=== PATIENT | male | born 1980 | race American Indian/Alaskan Native ===

== ENCOUNTER 2017-04-27 01:52 | Inpatient (IN) | payer OTHER ==
[2017-04-27 02:52] LABS: Basophils % (Auto) 0.6 % (0.0-1.8); Eosinophils % (Auto) 3.7 % (0.0-4.3); Hematocrit 41.9 % (35.5-45.6); Mean Corpuscular HGB Conc 33 % (32-34); Mean Corpuscular Hemoglobin 30 pg (28-32); Mean Corpuscular Volume 90 fl (84-94); Platelet Count 189 K/mm3 (140-440); Red Blood Count 4.66 M/mm3 (3.65-5.03); Red Cell Distribution Width 14.1 % (13.2-15.2); White Blood Count 7.5 K/mm3 (4.5-11.0)
[2017-04-27 03:11] LABS: Anion Gap 19 mmol/L; BUN/Creatinine Ratio 24.28; Blood Urea Nitrogen 17 mg/dL (9-20); Calcium 8.8 mg/dL (8.4-10.2); Carbon Dioxide 25 mmol/L (22-30); Chloride 98.3 mmol/L (98-107); Glucose 108 mg/dL (75-100); Potassium 3.7 mmol/L (3.6-5.0); Sodium 139 mmol/L (137-145)
[2017-04-27] MEDS ORDERED: LIDOCAINE VISCOUS 2% PO ONE (08:03)
[2017-04-27] MEDS ORDERED: ALUM-MAG HYDROX-SIMETH 200-200-20MG/5ML PO ONE (08:03)
[2017-04-27] MEDS ORDERED: PEPCID IV ONE (08:03)
[2017-04-27] MEDS ORDERED: ASPIRIN PO ONE (08:04)
--- NOTE | 2017-04-27 08:07 | Emergency Department Report ---
ED Chest Pain HPI - General Chief Complaint: Chest Pain Stated Complaint: CHEST PAIN, NAUSEA Time Seen by Provider: 04/27/17 07:33 Source: patient Mode of arrival: Ambulatory Limitations: No Limitations - History of Present Illness Initial Comments: 37-year-old male with no known past medical history presents to the hospital complains of intermittent chest pain 6 days. Pain is in the epigastric area and left side of chest. Described as a intermittent pressure and fullness. Worse when lying supine without any specific alleviating factors reported. Denies burning sensation. Positive nausea without vomiting, shortness of breath , diaphoresis, calf tenderness, or edema. Patient denies significant family history or tobacco use patient presents with elevated BP and has not had his blood pressure checked in quite some time since she does not have a primary care doctor. Severity scale (0 -10): 0 - Related Data Home Medications Medication Instructions Recorded Confirmed Last Taken No Known Home Medications [No 04/27/17 04/27/17 Unknown Reported Home Medications] Allergies Allergy/AdvReac Type Severity Reaction Status Date / Time No Known Allergies Allergy Verified 04/27/17 06:38 Heart Score - HEART Score History: Slightly suspicious EKG: Normal Age: < 45 Risk factors: 1-2 risk factors Troponin: < normal limit HEART Score: 1 ED Review of Systems ROS: Stated complaint: CHEST PAIN, NAUSEA Other details as noted in HPI Comment: All other systems reviewed and negative Other: Constitutional: No fevers chills Eyes: No eye pain visual changes ENT: No ear pain or throat pain Neck: Denies pain Respiratory: Denies cough wheezing shortness of breath Cardiovascular: Denies palpitations, syncope GI: Denies abdominal pain : Denies dysuria Musculoskeletal: Denies back pain Skin: Denies rash, lesions, erythema Neurologic: Denies headache, numbness, weakness Psychiatric: Denies suicidal ideation, hallucinations ED Past Medical Hx - Past Medical History Previous Medical History?: No - Surgical History Past Surgical History?: Yes Additional Surgical History: surgery on rt elbow 18 yrs - Social History Smoking Status: Never Smoker Substance Use Type: None - Medications Home Medications: Home Medications Medication Instructions Recorded Confirmed Last Taken Type No Known Home Medications [No 04/27/17 04/27/17 Unknown History Reported Home Medications] ED Physical Exam - General Limitations: No Limitations - Other Other exam information: General: No limitations, patient is alert in no acute distress Head exam: Atraumatic, normocephalic Eyes exam: Normal appearance, pupils equal reactive to light, extraocular movements intact ENT: Moist mucous membrane, normal oropharynx Neck exam: Normal inspection, full range of motion, no meningismus nontender Respiratory exam: Clear to auscultation bilateral, no wheezes, rales, crackles Cardiovascular: Normal rate and rhythm, normal heart sounds, no chest wall tenderness Abdomen: Soft, nondistended, mild epigastric tenderness, with normal bowel sounds, no rebound, or guarding Extremity: Full range of motion normal inspection no deformity, no calf tenderness or edema Back: Normal Inspection, full range of motion, no tenderness Neurologic: Alert, oriented x3, cranial nerves intact, no motor or sensory deficit Psychiatric: normal affect, normal mood Skin: Warm, dry, intact ED Course Vital Signs 04/27/17 04/27/17 04/27/17 02:23 06:33 07:28 Temperature 98 F 97.7 F Pulse Rate 98 H 70 80 Respiratory 18 15 12 Rate Blood Pressure 167/105 Blood Pressure 151/96 146/85 [Left] O2 Sat by Pulse 99 99 98 Oximetry - Reevaluation(s) Reevaluation #1: 04/27/17 08:07 Maalox, viscous lidocaine, IV Pepcid, and by mouth aspirin ordered BERT score - Bert Score Age > 65: (0) No Aspirin use within the Past 7 Days: (0) No 3 or more CAD Risk Factors: (0) No 2 or more Angina events in past 24 hrs: (0) No Known CAD with more than 50% Stenosis: (0) No Elevated Cardiac Markers: (0) No ST Deviation Greater than 0.5mm: (0) No BERT Score: 0 ED Medical Decision Making - Lab Data Result diagrams: 04/27/17 02:39 04/27/17 02:39 Lab Results 04/27/17 04/27/17 04/27/17 Range/Units 02:39 02:39 05:27 WBC 7.5 (4.5-11.0) K/mm3 RBC 4.66 (3.65-5.03) M/mm3 Hgb 14.0 (11.8-15.2) gm/dl Hct 41.9 (35.5-45.6) % MCV 90 (84-94) fl MCH 30 (28-32) pg MCHC 33 (32-34) % RDW 14.1 (13.2-15.2) % Plt Count 189 (140-440) K/mm3 Lymph % (Auto) 24.2 (13.4-35.0) % Pierce % (Auto) 12.4 H (0.0-7.3) % Eos % (Auto) 3.7 (0.0-4.3) % Baso % (Auto) 0.6 (0.0-1.8) % Lymph # 1.8 (1.2-5.4) K/mm3 Pierce # 0.9 H (0.0-0.8) K/mm3 Eos # 0.3 (0.0-0.4) K/mm3 Baso # 0.0 (0.0-0.1) K/mm3 Seg Neutrophils % 59.1 (40.0-70.0) % Seg Neutrophils # 4.4 (1.8-7.7) K/mm3 Sodium 139 (137-145) mmol/L Potassium 3.7 (3.6-5.0) mmol/L Chloride 98.3 (98-107) mmol/L Carbon Dioxide 25 (22-30) mmol/L Anion Gap 19 mmol/L BUN 17 (9-20) mg/dL Creatinine 0.7 L (0.8-1.5) mg/dL Estimated GFR > 60 ml/min BUN/Creatinine Ratio 24.28 % Glucose 108 H (75-100) mg/dL Calcium 8.8 (8.4-10.2) mg/dL Troponin T < 0.010 < 0.010 (0.00-0.029) ng/mL - EKG Data -: EKG Interpreted by Me (nsr rate 82, LPFB no stemi) - Radiology Data Radiology results: report reviewed (cxr: no acute disease, old healed granulomatous disease possible) - Medical Decision Making Overall I think that patient's symptoms are likely GI related. My concern is probable risk stratification given unknown medical history the lack of PMD follow-up. Patient will be admitted for stress test to rule out cardiac disease - Differential Diagnosis LA, PE, GERD, esophageal spasm, atypical chest pain Critical Care Time: No Critical care attestation.: If time is entered above; I have spent that time in minutes in the direct care of this critically ill patient, excluding procedure time. ED Disposition Clinical Impression: Chest pain, Elevated blood pressure reading Disposition: OP ADMIT IP TO THIS HOSP Is pt being admited?: Yes Condition: Stable Time of Disposition: 08:05 ([facility]/h[facility])
[2017-04-27] MEDS ORDERED: ZOFRAN IV PRN (08:47)
--- NOTE | 2017-04-27 08:48 | History and Physical Report ---
<HEYDI DORADO - Last Filed: 04/27/17 12:26> History of Present Illness Date of examination: 04/27/17 Date of admission: 04/27/2017 Chief complaint: Chest pain History of present illness: Patient is 37-year-old male with no known past medical history presents to the hospital complains of intermittent chest pain for the past six days. who presented to the ED complaining of left chest pain. he states that the pain began six days ago consisted of a dull pain. The pain was located over her left chest area somewhat in the epigastric area . Patient described as dull, constant, pressure pain. The onset of pain came while the patient was at home laying down on the sofa. He states that pain was non-radiating and lasted for several hours. Worse when lying supine there is no alleviating factors . He continued to have several episodes of the pain throughout the night, so his decided to bring him to the emergency department. The painful episodes did not increase in intensity or severity during this time. Patient was given nitroglycerin, ASA in the emergency department without improvement of the pain. The patient currently rated his pain a score of 5/10. He denies shortness of breath, diaphoresis, vomiting during these episodes of pain. Patient reported nausea. Patient had a negative. Patient never had chest pain or cardiac issue before. Past History Past Medical History: No medical history Past Surgical History: No surgical history Social history: denies: smoking, alcohol abuse, prescription drug abuse Family history: no significant family history Medications and Allergies Allergies Allergy/AdvReac Type Severity Reaction Status Date / Time No Known Allergies Allergy Verified 04/27/17 06:38 Home Medications Medication Instructions Recorded Confirmed Last Taken Type No Known Home Medications [No 04/27/17 04/27/17 Unknown History Reported Home Medications] Active Meds: Active Medications Acetaminophen (Tylenol) 650 mg PO Q4H PRN PRN Reason: Pain MILD(1-3)/Fever >100.5/TIWARI Aspirin (Aspirin) 325 mg PO QDAY SMITA Bisacodyl (Dulcolax) 10 mg CA QDAY PRN PRN Reason: Constipation unrelieved by MOM Famotidine (Pepcid) 40 mg PO QDAY [facility] Morphine Sulfate (Morphine) 2 mg IV Q4H PRN PRN Reason: Pain, Moderate (4-6) Ondansetron HCl (Zofran) 4 mg IM Q4H PRN PRN Reason: Nausea And Vomiting Review of Systems Constitutional: no weight loss, no weight gain, no fever, no chills, no sweats Ears, nose, mouth and throat: no ear pain, no ear discharge, no tinnitis, no decreased hearing, no nose pain, no nasal congestion Cardiovascular: chest pain, no palpitations, no rapid/irregular heart beat, no edema, no syncope, no lightheadedness Respiratory: no cough, no cough with sputum, no excessive sputum, no hemoptysis , no shortness of breath Gastrointestinal: nausea, no vomiting, no diarrhea, no constipation, no coffee ground emesis Genitourinary Male: no dysuria, no flank pain, no discharge, no urinary frequency, no urinary hesitancy Rectal: no pain, no incontinence Musculoskeletal: no neck stiffness, no neck pain, no shooting arm pain Integumentary: no rash, no pruritis, no redness Neurological: no transient paralysis, no paralysis, no weakness, no parathesias Psychiatric: no memory loss, no change in sleep habits, no sleep disturbances, no hypersomnia Endocrine: no cold intolerance, no heat intolerance, no polyphagia, no weight change Hematologic/Lymphatic: no easy bleeding Allergic/Immunologic: no allergic rhinitis Exam - Constitutional Vitals: Temp Pulse Resp BP Pulse Ox 97.7 F 80 12 146/85 98 04/27/17 07:28 04/27/17 07:28 04/27/17 07:28 04/27/17 07:28 04/27/17 07:28 General appearance: Present: no acute distress - EENT Eyes: Present: PERRL, EOM intact ENT: hearing intact, clear oral mucosa - Neck Neck: Present: supple - Respiratory Respiratory effort: normal Respiratory: bilateral: CTA - Cardiovascular Heart rate: 104 Rhythm: regular Heart Sounds: Present: S1 & S2 - Extremities Extremities: no ischemia Peripheral Pulses: within normal limits - Abdominal General gastrointestinal: Present: soft, non-tender Male genitourinary: Present: deferred - Rectal Rectal Exam: deferred - Integumentary Integumentary: Present: clear, warm, dry - Musculoskeletal Musculoskeletal: strength equal bilaterally - Psychiatric Psychiatric: appropriate mood/affect - Neurologic Neurologic: CNII-XII intact - Allied Health Allied health notes reviewed: nursing Results - Labs CBC & Chem 7: 04/27/17 02:39 04/27/17 02:39 Labs: Laboratory Last Values WBC 7.5 K/mm3 (4.5-11.0) 04/27/17 02:39 RBC 4.66 M/mm3 (3.65-5.03) 04/27/17 02:39 Hgb 14.0 gm/dl (11.8-15.2) 04/27/17 02:39 Hct 41.9 % (35.5-45.6) 04/27/17 02:39 MCV 90 fl (84-94) 04/27/17 02:39 MCH 30 pg (28-32) 04/27/17 02:39 MCHC 33 % (32-34) 04/27/17 02:39 RDW 14.1 % (13.2-15.2) 04/27/17 02:39 Plt Count 189 K/mm3 (140-440) 04/27/17 02:39 Lymph % (Auto) 24.2 % (13.4-35.0) 04/27/17 02:39 Ocean % (Auto) 12.4 % (0.0-7.3) H 04/27/17 02:39 Eos % (Auto) 3.7 % (0.0-4.3) 04/27/17 02:39 Baso % (Auto) 0.6 % (0.0-1.8) 04/27/17 02:39 Lymph # 1.8 K/mm3 (1.2-5.4) 04/27/17 02:39 Ocean # 0.9 K/mm3 (0.0-0.8) H 04/27/17 02:39 Eos # 0.3 K/mm3 (0.0-0.4) 04/27/17 02:39 Baso # 0.0 K/mm3 (0.0-0.1) 04/27/17 02:39 Seg Neutrophils % 59.1 % (40.0-70.0) 04/27/17 02:39 Seg Neutrophils # 4.4 K/mm3 (1.8-7.7) 04/27/17 02:39 Sodium 139 mmol/L (137-145) 04/27/17 02:39 Potassium 3.7 mmol/L (3.6-5.0) 04/27/17 02:39 Chloride 98.3 mmol/L (98-107) 04/27/17 02:39 Carbon Dioxide 25 mmol/L (22-30) 04/27/17 02:39 Anion Gap 19 mmol/L 04/27/17 02:39 BUN 17 mg/dL (9-20) 04/27/17 02:39 Creatinine 0.7 mg/dL (0.8-1.5) L 04/27/17 02:39 Estimated GFR > 60 ml/min 04/27/17 02:39 BUN/Creatinine Ratio 24.28 % 04/27/17 02:39 Glucose 108 mg/dL (75-100) H 04/27/17 02:39 Calcium 8.8 mg/dL (8.4-10.2) 04/27/17 02:39 Troponin T < 0.010 ng/mL (0.00-0.029) 04/27/17 05:27 Assessment and Plan Assessment and plan: Patient is 37-year-old male with no known past medical history presents to the hospital complains of intermittent chest pain for the past six days. who presented to the ED complaining of left chest pain. he states that the pain began six days ago consisted of a dull pain Chest x-ray-no focal infiltrates, no pneumothorax. Cardiac enzyme negative. EKG Sinus Tachycardia rate [address] elevation or T-wave inversion ASSESSMENT/PLAN Chest Pain We will admit to telemetry floor. EKG normal sinus rate [address] elevation or T-wave inversion. We will get another EKG ordered for a changes that have taken since the first one obtained We will repeat serial cardiac enzymes and follow cardiac enzymes troponin. Start on aspirin Nitroglycerin when necessary Morphine ordered for pain Stress test ordered. Hypertension Started on HCTZ 25mg daily IV hydralazine for SBP >160 Closely monitor blood pressure DVT prophylaxis Full code Advance Directives: Yes VTE prophylaxis?: Chemical Contraindication Mechanical VTE Prophylaxis: Treatment Not Indicated Plan of care discussed with patient/family: Yes <JOSE E KIM - Last Filed: 04/27/17 17:46> History of Present Illness Date of admission: 04/27/17 09:01 Medications and Allergies Active Meds: Active Medications Acetaminophen (Tylenol) 650 mg PO Q4H PRN PRN Reason: Pain MILD(1-3)/Fever >100.5/TIWARI Aspirin (Aspirin) 325 mg PO QDAY [facility] Bisacodyl (Dulcolax) 10 mg CA QDAY PRN PRN Reason: Constipation Famotidine (Pepcid) 40 mg PO QDAY [facility] Hydrochlorothiazide (Hctz) 25 mg PO QDAY [facility] Morphine Sulfate (Morphine) 2 mg IV Q4H PRN PRN Reason: Pain, Moderate (4-6) Ondansetron HCl (Zofran) 4 mg IV Q4H PRN PRN Reason: Nausea And Vomiting Exam - Constitutional Vitals: Temp Pulse Resp BP Pulse Ox 98.0 F 83 18 134/74 99 04/27/17 13:33 04/27/17 13:33 04/27/17 13:33 04/27/17 13:33 04/27/17 13:33 Results - Labs CBC & Chem 7: 04/27/17 02:39 04/27/17 02:39 Labs: Laboratory Last Values WBC 7.5 K/mm3 (4.5-11.0) 04/27/17 02:39 RBC 4.66 M/mm3 (3.65-5.03) 04/27/17 02:39 Hgb 14.0 gm/dl (11.8-15.2) 04/27/17 02:39 Hct 41.9 % (35.5-45.6) 04/27/17 02:39 MCV 90 fl (84-94) 04/27/17 02:39 MCH 30 pg (28-32) 04/27/17 02:39 MCHC 33 % (32-34) 04/27/17 02:39 RDW 14.1 % (13.2-15.2) 04/27/17 02:39 Plt Count 189 K/mm3 (140-440) 04/27/17 02:39 Lymph % (Auto) 24.2 % (13.4-35.0) 04/27/17 02:39 Ocean % (Auto) 12.4 % (0.0-7.3) H 04/27/17 02:39 Eos % (Auto) 3.7 % (0.0-4.3) 04/27/17 02:39 Baso % (Auto) 0.6 % (0.0-1.8) 04/27/17 02:39 Lymph # 1.8 K/mm3 (1.2-5.4) 04/27/17 02:39 Ocean # 0.9 K/mm3 (0.0-0.8) H 04/27/17 02:39 Eos # 0.3 K/mm3 (0.0-0.4) 04/27/17 02:39 Baso # 0.0 K/mm3 (0.0-0.1) 04/27/17 02:39 Seg Neutrophils % 59.1 % (40.0-70.0) 04/27/17 02:39 Seg Neutrophils # 4.4 K/mm3 (1.8-7.7) 04/27/17 02:39 Sodium 139 mmol/L (137-145) 04/27/17 02:39 Potassium 3.7 mmol/L (3.6-5.0) 04/27/17 02:39 Chloride 98.3 mmol/L (98-107) 04/27/17 02:39 Carbon Dioxide 25 mmol/L (22-30) 04/27/17 02:39 Anion Gap 19 mmol/L 04/27/17 02:39 BUN 17 mg/dL (9-20) 04/27/17 02:39 Creatinine 0.7 mg/dL (0.8-1.5) L 04/27/17 02:39 Estimated GFR > 60 ml/min 04/27/17 02:39 BUN/Creatinine Ratio 24.28 % 04/27/17 02:39 Glucose 108 mg/dL (75-100) H 04/27/17 02:39 Calcium 8.8 mg/dL (8.4-10.2) 04/27/17 02:39 Troponin T < 0.010 ng/mL (0.00-0.029) 04/27/17 08:33 Assessment and Plan Assessment and plan: I saw and evaluated the patient. I agree with the findings and the plan of care as documented in the Nurse Practitioner's~note, with the following corrections and additions. Patient seen and examined in no acute distress at this time. Will check lipid profile, UDS, and lipase.
--- NOTE | 2017-04-27 08:55 | XRay Report ---
CHEST 2 VIEWS INDICATION: Chest pain. COMPARISON: None similar at this institution. FINDINGS: PA and lateral chest radiographs demonstrate normal cardiomediastinal silhouette. Clear lungs. Intact bones. EKG leads. CONCLUSION: No acute disease in the chest. Old healed granulomatous disease possible. Thank you for the opportunity to participate in this patient's care.
[2017-04-27] MEDS ORDERED: MORPHINE IV PRN (10:00)
[2017-04-27] MEDS ORDERED: TYLENOL PO PRN (10:30)
[2017-04-27] MEDS ORDERED: LEXISCAN IV ONE ×2 (10:47→10:49)
[2017-04-27] MEDS ORDERED: DULCOLAX PR PRN (11:00)
[2017-04-27] MEDS: PEPCID PO SCH (12:24)
--- NOTE | 2017-04-27 14:22 | Admit Criteria Form ---
Admission Criteria Documentation: CARDIOLOGY GRG Clinical Indications for Admission to Inpatient Care ( Place 'X' for any and all applicable criteria): Hospital admission is needed for appropriate care of the patient because of ANY ONE of the following (1): [ ] I. Hemodynamic instability as indicated by ALL of the following (1)(2)(3) (4)(5) [ ]a) Vital signs or other findings not as expected for chronic patient condition or baseline [ ]b) Instability indicated by ANY ONE of the following: [ ]i) Hypotension [ ]ii) Symptomatic Tachycardia unresponsive to treatment ( e.g., analgesia, fluids, sedation as indicated) [ ]iii) Inadequate perfusion indicated by ANY ONE of the following: [ ] 1) Lactic acidosis (> 2 mmol/L) [ ] 2) New abnormal capillary refill (> 3 seconds) [ ] 3) Reduced urine output [ ] 4) New altered mental status [ ]iv) Orthostatic vital sign changes unresponsive to treatment (e.g., fluids) [ ]v) IV inotropic or vasopressor medication required to maintain adequate blood pressure or perfusion [ ] II. Severe heart failure as indicated by ANY ONE of the following(17)(18) [ ]a) Respiratory distress [ ]b) Hypotension [ ]c) Anasarca (refractory to outpatient therapy) [ ]d) Cardiac arrhythmias of immediate concern [ ]e) Myocardial ischemia [ ] III. Cardiac arrhythmias or findings of immediate concern indicated by ANY ONE of the following (19)(20): [ ] a) Heart rhythms that are inherently dangerous or unstable indicated by ANY ONE of the following (21)(22)(23): [ ] i) Resuscitated ventricular fibrillation or cardiac arrest [ ] ii) Ventricular escape rhythm [ ] iii) Sustained ventricular tachycardia (30 seconds or more of ventricular rhythm at greater than 100 beats per minute) [ ] iv) Nonsustained ventricular tachycardia and ANY ONE of the following: [ ] 1) Suspected cardiac ischemia as cause or consequence of ventricular tachycardia [ ] 2) In setting of acute myocarditis [ ] b) Unstable cardiac conduction defects indicated by ANY ONE of the following(23)(24)(25) [ ] i) Type II second-degree atrioventricular block [ ]ii) Third-degree atrioventricular block [ ]iii) New-onset left bundle branch block with suspected myocardial ischemia [ ]c) Any heart rhythm and ANY ONE of the following (21)(22)(26)(27) (28) [ ] i) Continuous long-term ECG monitoring needed (e.g., initiation of drug requiring monitoring for more than 24 hours) [ ] ii) Patient has automatic implanted cardioverter defibrillator that is repeatedly firing, malfunctioning, or in need of immediate adjustment of settings beyond the scope of ambulatory or observation care [ ]d) Heart rhythms of concern due to ANY ONE of the following: [ ] i) Hypotension [ ] ii) Respiratory distress [ ] iii) Association with other significant symptoms (e.g., bradycardia with syncope or ongoing dizziness, supraventricular tachycardia with chest pain (14)(15)(17) [ ] IV. Monitoring for cardiac contusion beyond the scope of observation care needed [A](30)(31)(32) [ ] V. Surgical or device complication (e.g., valve replacement complication , pacemaker dysfunction) (35)(41)(44)(45)(46) [ ] . Inpatient palliative care needed. [B](49) Also use Inpatient Palliative Care Criteria [ ] VII. Nonbacterial thrombotic (marantic) endocarditis (36)(43)(47)(48) [X ] VIII. Cardiology condition, symptom, or finding for which emergency and observation care has failed or are not considered appropriate. [ ] IX. Acute valvular disease requiring inpatient as indicated by ANY ONE of the following (41) [ ]a) Acute valvular regurgitation (42) [ ]b) Noninfectious valvulitis (43) [ ]c) Obstructive valve thrombosis [ ]d) Paravalvular leak [ ]e) Other significant valvular disorder remaining after emergency or observation level of care (as appropriate) [ ]X. Pericardial disease requiring inpatient treatment as indicated by ANY ONE of the following (33)(34)(35)(36)(37) [ ]a) Suspected tamponade (38)(39)(40) [ ]b) Hemopericardium [ ]c) Other significant pericardial disorder remaining after emergency or observation level of care (as appropriate) [ ] XI. Cardiac ischemia beyond scope of emergency and observation care. [ ] XII. Hypertension requiring inpatient treatment as indicated by ANY ONE of the following (6)(7)(8) [ ]a) SBP greater than 220 mm Hg or DBP greater than 120 mmHg despite treatment [ ]b) SBP greater than 140 mm Hg or DBP greater than 100 mm Hg with evidence of acute end organ damage as indicated by ANY ONE of the following [ ] i) Altered mental status [ ] ii) Acute renal failure as indicated by new onset of ANY ONE of the following (9)(10)(11)(12)(13) [ ]1) 3-fold rise in serum creatinine from baseline [ ]2) Serum creatinine greater than 4 mg/dL ( 354 micromoles/L) with acute rise greater than 0.5 mg/dL (44.2 micromoles/L) [ ]3) Reduction of more than 75% in estimated glomerular filtration rate from baseline [ ]4) Estimated glomerular filtration rate less than 35 mL/min/1.73m2 (0.59 mL/sec/1.73m2) in child up to 18 years of age [ ]5) Cessation of urine output indicated by ALL of the following [ ]A. Adequate volume status [ ]B. Inadequate urine output as indicated by ANY ONE of the following [ ]a. Urine output less than 0.3 mL/kg/hr for 24 hours [ ]b. Anuria (urine output less than 0.1 mL/kg/hr) for 12 hours [ ] iii) Aortic dissection [ ] iv) Myocardial Ischemia [ ] v) Left ventricular heart failure [ ]vi) Retinal Hemorrhage [ ]vii) Other significant finding [ ]c) Hypertension in child requiring inpatient treatment as indicated by ALL of the following(14)(15)(16) [ ] i) Outpatient treatment not effective, not available, or not appropriate [ ]ii) SBP or DBP greater than 95th percentile for age [ ]iii) Evidence of acute end organ damage as indicated by ANY ONE of the following [ ]1) Altered mental status [ ]2) Acute renal failure as indicated by new onset of ANY ONE of the following(9)(10)(11)(12)(13) [ ]A. 3-fold rise in serum creatinine from baseline [ ]B. Serum creatinine greater than 4 mg/dL (354 micromoles/L) with acute rise greater than 0.5 mg/dL (44.2 micromoles/L) [ ]C. Reduction of more than 75% in estimated glomerular filtration rate from baseline [ ]D. Estimated glomerular filtration rate less than 35 mL/min/1.73m2 (0.59 mL/sec/1.73m2) in child up to 18 years of age [ ]E. Cessation of urine output indicated by ALL of the following [ ]a. Adequate volume status [ ]b. Inadequate urine output as indicated by ANY ONE of the following [ ]i) Urine output less than 0.3 mL/kg/hr for 24 hours [ ]ii) Anuria ( urine output less than 0.1 mL/kg/hr) for 12 hours [ ]3) Severe headache [ ]4) Visual disturbance [ ]5) Retinal hemorrhage [ ]6) Other significant finding [ ]XIII. Complications of transplanted heart indicated by ANY ONE of the following(61): [ ]a) Acute graft rejection requiring inpatient management (eg, intravenous immunosuppression)(62)(63) [ ]b) Acute graft heart failure indicated by ANY ONE of the following(64): [ ]i) Hemodynamic instability [ ]ii) Cardiac arrhythmias of immediate concern [ ]iii) Pulmonary edema that is very severe (eg, mechanical ventilation needed, imminent or likely, need for 100% oxygen to keep oxygen saturation above 90%) [ ]iv) Pulmonary edema that is persistent as indicated by ALL of the following: [ ]1) New need for oxygen therapy to keep oxygen saturation above 90% (or increased FiO2 need from baseline) [ ]2) Has not improved sufficiently with emergency department or observation care IV diuretics or other heart failure treatments[E] [ ]v) Altered mental status that is severe or persistent [ ]vi) Increased creatinine (new on laboratory test) with reduction of more than 50% in estimated glomerular filtration rate from baseline [ ]vii) Progressively (ongoing) rising creatinine (known from past laboratory test) with reduction of more than 25% in estimated glomerular filtration rate from baseline [ ]viii) Acute renal failure [ ]ix) Acute peripheral ischemia (eg, examination shows pulseless, cool, mottled, or cyanotic extremity) [ ]x) Pulmonary artery catheter monitoring needed [ ]xi) Other sign or symptom of heart failure requiring inpatient treatment (ie, too severe or not responsive to outpatient and observation care treatment) [ ]c) Infection requiring inpatient management (eg, Hemodynamic instability, need for intravenous antimicrobial treatment)(66)(67)(68)(69)(70) [ ]d) Cardiac allograft vasculopathy requiring inpatient management ( eg evidence of cardiac ischemia)(71) [ ]e) Other complication of transplanted heart (eg, stroke, severe pulmonary hypertension, severe valvular dysfunction) requiring inpatient management(72) The original [facility] content created by [employer] has been revised. The portions of the content which have been revised are identified through the use of italic text or in bold, and [facility] has neither reviewed nor approved the modified material. All other unmodified content is copyright [facility] [employer]. Please see references footnoted in the original [facility] [employer] edition 2016 Admission Criteria Met: Yes
[2017-04-27 21:43] LABS: Alanine Aminotransferase 29 units/L (7-56); Albumin 4.4 g/dL (3.9-5); Albumin/Globulin Ratio 1.2 %; Alkaline Phosphatase 68 units/L (35-129)
[2017-04-27 21:50] LABS: Bilirubin,Direct < 0.2 mg/dL (0-0.2); Bilirubin,Indirect 0.2 mg/dL
--- NOTE | 2017-04-28 02:49 | Treadmill Report ---
SINGLE ISOTOPE DUAL STUDY MYOCARDIAL PERFUSION SCAN REPORT REFERRING PHYSICIAN: Hospitalist. DESCRIPTION OF PROCEDURE: The patient received 10 mCi of technetium 99m Myoview intravenously under resting conditions. Resting myocardial perfusion scan was done. Subsequently, the patient underwent Lexiscan stress test as per the protocol. During Lexiscan stress, the patient received 29 mCi of technetium 99m Myoview intravenously. After 30-60 minutes, post stress images were done. Computerized reconstruction images were performed for analysis. The post-stress images did not reveal any perfusion abnormality. Gated study did not reveal any wall motion abnormality. The left ventricular ejection fraction was normal and was calculated to be 62%. The resting images did not reveal any perfusion abnormality. CONCLUSION: 1. No perfusion abnormality of the left ventricular myocardium was demonstrated in the resting as well as stress images obtained after the patient underwent Lexiscan nuclear stress test. 2. No wall motion abnormality. 3. Normal left ventricular ejection fraction of 62%. JOB# [id number] [facility]
[2017-04-28 06:26] LABS: Basophils % (Auto) 0.8 % (0.0-1.8); Eosinophils % (Auto) 3.7 % (0.0-4.3); Hematocrit 42.9 % (35.5-45.6); Hemoglobin 14.4 gm/dl (11.8-15.2); Mean Corpuscular HGB Conc 34 % (32-34); Mean Corpuscular Hemoglobin 30 pg (28-32); Mean Corpuscular Volume 90 fl (84-94); Platelet Count 187 K/mm3 (140-440); Red Blood Count 4.75 M/mm3 (3.65-5.03); Red Cell Distribution Width 13.9 % (13.2-15.2); White Blood Count 7.2 K/mm3 (4.5-11.0)
[2017-04-28 06:42] LABS: Anion Gap 17 mmol/L; BUN/Creatinine Ratio 16.66; Blood Urea Nitrogen 10 mg/dL (9-20); Calcium 8.9 mg/dL (8.4-10.2); Carbon Dioxide 25 mmol/L (22-30); Chloride 99.6 mmol/L (98-107); Glucose 105 mg/dL (75-100); Potassium 3.5 mmol/L (3.6-5.0); Sodium 138 mmol/L (137-145)
--- NOTE | 2017-04-28 09:29 | Discharge Summary ---
Providers - Providers Date of Admission: 04/27/17 09:01 Date of discharge: 04/28/17 Attending physician: JOSE E KIM MD Primary care physician: TIRE LAYER Hospitalization Condition: Stable Hospital course: Patient is a 37 years old male with no past medical history who presents to the ED with complaining of chest pain. Patient was diagnosed with chest pain and hypertension. Patient presented with atypical chest pain, ACS was ruled out, normal MPI, negative cardiac enzymes, ECGs shows normal sinus rythm , CXR was wnl and CTA with no risk for pulmonary embolism. Patient chest pain probably from musculoskeletal and gastritis. He was treated with IV fluid hydration, antihypertensive medication. Patient discharged with oral hypertensive medication and antacid. Patient is clinically improved and stable for discharge. Patient advised to follow-up with his primary care provider. Diagnosed Chest Pain Hypertension Disposition: TO HOME OR SELFCARE Time spent for discharge: 33 minutes Core Measure Documentation - Palliative Care Palliative Care/ Comfort Measures: Not Applicable - Core Measures Any of the following diagnoses?: none Exam - Constitutional Vitals: Temp Pulse Resp BP Pulse Ox 98 F 65 18 124/66 99 04/28/17 08:00 04/28/17 08:00 04/28/17 08:00 04/28/17 08:00 04/28/17 08:00 General appearance: Present: no acute distress - EENT Eyes: Present: PERRL ENT: hearing intact - Neck Neck: Present: supple - Respiratory Respiratory effort: normal Respiratory: bilateral: CTA - Cardiovascular Heart rate: 62 Rhythm: regular Heart Sounds: Present: S1 & S2 - Extremities Extremities: no ischemia Peripheral Pulses: within normal limits - Abdominal General gastrointestinal: Present: soft, non-tender Male genitourinary: Present: deferred - Rectal Rectal Exam: deferred - Integumentary Integumentary: Present: clear, warm, dry - Musculoskeletal Musculoskeletal: strength equal bilaterally - Psychiatric Psychiatric: appropriate mood/affect - Allied Health Allied health notes reviewed: nursing Plan Activity: no restrictions Weight Bearing Status: Weight Bear as Tolerated Diet: low fat, low cholesterol, low salt Follow up with: PRIMARY CARE, [Primary Care Provider] - 7 Days Prescriptions: Famotidine [Pepcid] 20 mg PO BID #60 tablet
[2017-04-28] MEDS ORDERED: ASPIRIN PO SCH (10:00)
[2017-04-28] MEDS ORDERED: HCTZ PO SCH (10:00)
[2017-04-28] MEDS: PEPCID PO SCH (11:32)
[2017-04-28 12:28] VITALS: BP 120/88
[2017-04-28 14:24] LABS: Urine Drugs of Abuse Note Disclamer
== END 2017-04-28 15:17 | disposition home or self-care (01) | DRG 313 ==
LOC: ED 01:52 → 4A 09:01
PROVIDERS: ADMIT Internal Medicine; ATTEND Internal Medicine
PROC: 4A02XM4 Measurement of Cardiac Total Activity, External Approach (ICD-10-PCS; principal; 2017-04-27)
DX: R07.9 Chest pain, unspecified (principal); I10 Essential (primary) hypertension
CPT/HCPCS: 36415; 71020; 78452; 80048; 80061; 80074; 80307; 83690; 84443; 84484; 85025; 93005; 93010; 93017; A9502; J2785